=== PATIENT | male | born 1985 | race Caucasian/White ===

== ENCOUNTER 2019-01-03 14:43 | Outpatient (CLI) | payer OTHER | END 2019-01-03 14:44 | disposition home or self-care (01) | LOC: SC 14:43 | PROVIDERS: ATTEND Internal Medicine Pulmonary Disease | DX: G47.33 Obstructive sleep apnea (adult) (pediatric) (principal); E66.9 Obesity, unspecified; Z68.38 Body mass index [BMI] 38.0-38.9, adult | CPT/HCPCS: 99203; 99212 ==

== ENCOUNTER 2019-04-13 14:49 | Outpatient (CLI) | payer OTHER ==
--- NOTE | 2019-04-14 11:58 | MRI Report ---
Reason: PAIN IN LEFT TOE Procedure Date: 04/13/2019 Accession Number: [id number] / [id number] Procedure: MRI - Foot LT W/O CPT Code: FULL RESULT: EXAM: LEFT MIDFOOT MRI WITHOUT CONTRAST EXAM DATE: 04/13/2019 03:23 PM. CLINICAL HISTORY: Pain in left toe. COMPARISON: None. TECHNIQUE: Multiplanar, multisequence T1-weighted and fluid-sensitive sequences of the midfoot without contrast. Other: None. FINDINGS: Bones and articular surfaces: There is moderate marrow edema throughout the second proximal phalanx. A discrete fracture line is not identified. Marrow signal otherwise appears normal. Flexion at the proximal interphalangeal joints of the second and third toes. No significant joint space narrowing or osteophyte formation. Musculotendinous structures: Small lobulated fluid collection between the second flexor digitorum longus tendon and the distal aspect of the proximal phalanx of the second toe measuring 1.0 x 0.5 x 0.4 cm. Possible small ganglion or synovial cyst. Possible communication with the flexor tendon sheath and/or the proximal interphalangeal joint. Flexor and extensor tendons otherwise appear normal. No muscle atrophy or fatty replaced within the field of view. IMPRESSION: 1. Moderate marrow edema throughout the second proximal phalanx. Nonspecific. Differential considerations include bone contusion, healing nondisplaced fracture or early osteomyelitis. However, no discrete fracture line identified and T1 fatty marrow signal is largely maintained. 2. Small ganglion or synovial cyst between the distal second proximal phalanx and the second longus tendon. [facility]
== END 2019-04-13 14:50 | disposition home or self-care (01) ==
LOC: DI 14:49
PROVIDERS: ATTEND Student in an Organized Health Care Education/Training Program
DX: M79.675 Pain in left toe(s) (principal); R60.0 Localized edema